=== PATIENT | male | born 1990 | race Two or more races ===

== ENCOUNTER 2017-04-14 12:55 | Emergency (ER) | payer OTHER ==
[~2017-04-14] VITALS: Ht 172.7 cm; Wt 81.6 kg
[2017-04-14 13:30] VITALS: BP 114/73
[2017-04-14] MEDS ORDERED: FLUORESCEIN SOD 1 MG TEST STRIP RIGHTEYE ONE (17:30)
[2017-04-14] MEDS ORDERED: TETRACAINE HCL 0.5% OPTH(EYE) SOLN 4ML RIGHTEYE ONE (17:30)
[2017-04-14] MEDS ORDERED: TRIAMCINOLONE 40MG/ML 1ML VIAL IM ONE (18:00)
[2017-04-14] MEDS ORDERED: SODIUM CHLORIDE 0.9% 1,000 ML IV ONE (18:30)
[2017-04-14] MEDS ORDERED: GENTAMICIN SULF 0.3% OPTH(EYE) OINT 3.5GM RIGHTEYE ONE (18:45)
== END 2017-04-14 19:00 | disposition home or self-care (01) ==
LOC: ER 12:55
DX: H16.001 Unspecified corneal ulcer, right eye (principal); G43.909 Migraine, unspecified, not intractable, without status migrainosus
CPT/HCPCS: 65222; 99284; J3301; J7030